=== PATIENT | male | born 1980 | race Caucasian/White ===

== ENCOUNTER 2018-01-01 14:09 | Inpatient (IN) | payer OTHER ==
[~2018-01-01] VITALS: Ht 177.8 cm; Wt 85.4 kg
[2018-01-01 14:55] VITALS: BP 121/52
[2018-01-01] MEDS ORDERED: FLAGYL500 MG PO (15:21)
[2018-01-01] MEDS ORDERED: VERAPAMIL HCL120 M1 PO (15:21)
[2018-01-01] MEDS ORDERED: IBU800 M1 PO (15:22)
[2018-01-01] MEDS ORDERED: CEFTRIAXON2 GM/50 ML IV (15:24)
[2018-01-01 15:47] LABS: HEMATOCRIT 34.7 % (42.0-52.0); HEMOGLOBIN 11.6 g/dl (14.0-18.0); MEAN CELL VOLUME 88.3 fl (80.0-94.0); MEAN CORPUSCULAR HGB 29.5 pg (27.0-31.0); MEAN CORPUSCULAR HGB CONC 33.4 g/dl (33.0-37.0); MEAN PLATELET VOLUME 9.1 fl (9.6-12.3); PLATELET COUNT AUTOMATED 99 10*3/uL (130-400); RED BLOOD COUNT 3.93 10*6/uL (4.50-5.90); RED CELL DISTRI WIDTH 12.9 % (0-14.5); WHITE BLOOD COUNT 4.5 10*3/uL (4.8-10.8)
[2018-01-01 15:56] LABS: INTERNATIONAL NORM RATIO 1.1 (2.0-3.5)
[2018-01-01 16:00] VITALS: BP 121/52
[2018-01-01 16:05] LABS: ALKALINE PHOSPHATASE 66 U/L (45-117); BUN 6 mg/dl (7-24); CHLORIDE 101 mmol/L (98-107); CREATININE 0.49 mg/dL (0.70-1.30); POTASSIUM 3.8 mmol/L (3.5-5.1); SGOT/AST 23 IU/L (3-35); SGPT/ALT 31 U/L (12-78); SODIUM 136 mmol/L (136-145); TOTAL PROTEIN 6.7 gm/dL (6.4-8.2)
[2018-01-01 16:08] LABS: ETHYL ALCOHOL < 3.0 mg/dl (<3)
[2018-01-01 16:17] LABS: PLATELET SUFFICIENCY LOW (NORMAL); TOTAL CELLS COUNTED 100 #CELLS
[2018-01-01 19:41] LABS: BILIRUBIN NEGATIVE (NEGATIVE); BLOOD NEGATIVE (NEGATIVE); CLARITY CLEAR (CLEAR); COLOR YELLOW (YELLOW); GLUCOSE NEGATIVE (NEGATIVE); KETONE NEGATIVE (NEGATIVE); LEUKO ESTERASE NEGATIVE (NEGATIVE); NITRITE NEGATIVE (NEGATIVE)
[2018-01-01 19:54] LABS: URINE AMPHETAMINES < 1000 (1000ng/ml); URINE BARBITURATES < 200 (200ng/ml); URINE BENZODIAZEPINES < 200 (200ng/ml); URINE CANNABINOIDS (THC) < 50 (50ng/ml); URINE COCAINE < 300 (300ng/ml); URINE METHADONE < 300 (300ng/ml); URINE OPIATES > 300 (300ng/ml)
[2018-01-01 19:57] LABS: URINE PHENCYCLIDINE < 25 (25ng/ml)
[2018-01-01 20:00] VITALS: BP 148/70
[2018-01-01 20:00] LABS: RBC 0-2 rbc/hpf (0-2)
[2018-01-02] VITALS: BP 129/63
[2018-01-02 08:00] VITALS: BP 134/60
[2018-01-02 12:00] VITALS: BP 129/68
[2018-01-02 16:00] VITALS: BP 130/70
[2018-01-02 20:00] VITALS: BP 128/64
[2018-01-03] VITALS: BP 110/52
[2018-01-03 08:00] VITALS: BP 138/78
[2018-01-03 12:00] VITALS: BP 119/72
== END 2018-01-03 16:07 | disposition left against medical advice (07) | DRG 894 ==
LOC: 5E 14:09
PROVIDERS: Internal Medicine
PROC: 02PYX3Z Removal of Infusion Device from Great Vessel, External Approach (ICD-10-PCS; principal; 2018-01-03)
DX: F11.23 Opioid dependence with withdrawal (principal); L03.114 Cellulitis of left upper limb; E44.0 Moderate protein-calorie malnutrition; Z68.27 Body mass index [BMI] 27.0-27.9, adult; D72.819 Decreased white blood cell count, unspecified; D64.9 Anemia, unspecified; I10 Essential (primary) hypertension; G43.919 Migraine, unspecified, intractable, without status migrainosus; D69.6 Thrombocytopenia, unspecified; Z72.0 Tobacco use; Z83.3 Family history of diabetes mellitus; Z79.899 Other long term (current) drug therapy; Z53.21 Procedure and treatment not carried out due to patient leaving prior to being seen by health care provider

== ENCOUNTER 2020-07-16 17:22 | Inpatient (IN) | payer OTHER ==
[~2020-07-16] VITALS: Ht 175.2 cm; Wt 89.8 kg
[~2020-07-16 17:22] MED LIST: CEFTRIAXON2 GM/50 ML IV; FLAGYL500 MG PO; IBU800 M1 PO; VERAPAMIL HCL120 M1 PO
[2020-07-16 17:30] VITALS: BP 133/63
[2020-07-16 18:52] LABS: BASO # 0.1 10*3/uL (0.0-0.1); BASO % 0.5 % (0.0-1.0); EOS # 0.8 10*3/uL (0.0-0.4); EOS % 7.5 % (1.0-4.0); HEMATOCRIT 40.9 % (42.0-52.0); LYMPH # 2.2 10*3/uL (1.3-4.4); LYMPH % 21.7 % (27.0-41.0); MEAN CORPUSCULAR HGB 28.9 pg (27.0-31.0); MEAN CORPUSCULAR HGB CONC 33.3 g/dl (33.0-37.0); MEAN PLATELET VOLUME 9.2 fl (9.6-12.3); MONO # 0.9 10*3/uL (0.1-1.0); MONO % 8.5 % (3.0-9.0); NEUT # 6.2 10*3/uL (2.3-7.9); NEUT % 61.5 % (47.0-73.0); PLATELET COUNT AUTOMATED 195 10*3/uL (130-400); RED CELL DISTRI WIDTH 13.2 % (0-14.5)
[2020-07-16 18:58] LABS: BILIRUBIN Negative (Negative); BLOOD Negative (Negative); CLARITY Clear (Clear); COLOR Dark Yellow (Yellow); GLUCOSE Negative (Negative); KETONE Trace (Negative); LEUKO ESTERASE Negative (Negative); NITRITE Negative (Negative); SPECIFIC GRAVITY >= 1.030 (1.001-1.030)
[2020-07-16 19:05] LABS: BACTERIA TRACE; EPITHELIAL CELLS 0-2; MUCOUS TRACE; RBC 0-2 rbc/hpf (0-2); WBC 0-2 wbc/hpf (0-5)
[2020-07-16 19:06] LABS: ALBUMIN 3.8 gm/dl (3.1-4.5); ALKALINE PHOSPHATASE 73 U/L (45-117); BUN 19 mg/dl (7-24); CHLORIDE 102 mmol/L (98-107); CREATININE 0.71 mg/dL (0.70-1.30); SGOT/AST 50 IU/L (3-35); SGPT/ALT 115 U/L (12-78); SODIUM 138 mmol/L (136-145); TOTAL PROTEIN 8.1 gm/dL (6.4-8.2)
[2020-07-16 19:10] LABS: ETHYL ALCOHOL < 3.0 mg/dl (<3)
[2020-07-16 19:35] VITALS: BP 136/90
[2020-07-16 19:45] VITALS: BP 155/85
[2020-07-16 22:00] LABS: BILIRUBIN Negative (Negative); BLOOD Negative (Negative); CLARITY Clear (Clear); COLOR Yellow (Yellow); GLUCOSE Negative (Negative); KETONE Negative (Negative); LEUKO ESTERASE Negative (Negative); NITRITE Negative (Negative); SPECIFIC GRAVITY 1.015 (1.001-1.030); UROBILINOGEN 0.2 E.U./dl (0.0-1.0)
[2020-07-16 22:07] LABS: BACTERIA TRACE; EPITHELIAL CELLS 0-2; RBC 0-2 rbc/hpf (0-2); URINE AMPHETAMINES < 1000 (1000ng/ml); URINE BARBITURATES < 200 (200ng/ml); URINE BENZODIAZEPINES < 200 (200ng/ml); URINE CANNABINOIDS (THC) > 50 (50ng/ml); URINE COCAINE < 300 (300ng/ml); URINE METHADONE < 300 (300ng/ml); URINE OPIATES < 300 (300ng/ml); WBC 0-2 wbc/hpf (0-5)
[2020-07-16 22:13] LABS: URINE PHENCYCLIDINE < 25 (25ng/ml)
[2020-07-17] VITALS: BP 128/68
[2020-07-17 04:00] VITALS: BP 120/60
[2020-07-17 08:00] VITALS: BP 121/72
[2020-07-17 12:00] VITALS: BP 108/81
[2020-07-17 16:00] VITALS: BP 128/79
[2020-07-17 20:00] VITALS: BP 120/61
[2020-07-18 08:00] VITALS: BP 114/68
== END 2020-07-18 12:34 | disposition left against medical advice (07) | DRG 770 ==
LOC: ED 17:22 → 5E 17:53 → EDHOLD 17:53 → 5E 19:18
PROVIDERS: Social Worker Clinical; ADMIT Student in an Organized Health Care Education/Training Program; ATTEND Student in an Organized Health Care Education/Training Program
DX: F11.23 Opioid dependence with withdrawal (principal); F13.230 Sedative, hypnotic or anxiolytic dependence with withdrawal, uncomplicated; F41.9 Anxiety disorder, unspecified; G62.9 Polyneuropathy, unspecified; G43.909 Migraine, unspecified, not intractable, without status migrainosus; G25.81 Restless legs syndrome; R61 Generalized hyperhidrosis; D64.9 Anemia, unspecified; D72.10 Eosinophilia, unspecified; R73.9 Hyperglycemia, unspecified; R74.01 Elevation of levels of liver transaminase levels; I10 Essential (primary) hypertension; F12.90 Cannabis use, unspecified, uncomplicated; F14.90 Cocaine use, unspecified, uncomplicated; F17.210 Nicotine dependence, cigarettes, uncomplicated; Z83.3 Family history of diabetes mellitus; Z53.29 Procedure and treatment not carried out because of patient's decision for other reasons